=== PATIENT | male | born 1970 | race African-American/Black ===

== ENCOUNTER 2019-01-23 16:07 | Emergency (ER) | payer BC ==
[2019-01-23] MEDS ORDERED: Meclizine 25 MG Tab PO ONE (16:20)
[2019-01-23] MEDS ORDERED: Sodium Chloride 0.9% 1,000 ML IV ONE (16:21)
--- NOTE | 2019-01-23 16:25 | EDM.PDOC ---
ED HPI GENERAL MEDICAL PROBLEM - General Chief Complaint: Cardiovascular Problem Stated Complaint: NOT FEELING WELL Time Seen by Provider: 01/23/19 16:08 Source of Information: Reports: Patient History Limitations: Reports: No Limitations - History of Present Illness INITIAL COMMENTS - FREE TEXT/NARRATIVE: HISTORY AND PHYSICAL: History of present illness: Patient is a 48-year-old male presents to the ED today with concern of dizziness and lightheaded since he woke up at about 3 AM this morning. Patient states he does feel off balance. Patient states he's never had these symptoms before. Other than this, patient denies any other symptoms. Patient states he was able unable to work due to these. Patient has not taken anything for his symptoms. Patient has a history of hypertension but denies any other health history. Patient denies fever, chills, chest pain, shortness of breath, or cough. Denies headache, neck stiff ness, change in vision, syncope, or near syncope. Denies nausea, vomiting, abdominal pain, diarrhea, constipation, or dysuria. Has not noted any blood in urine or stool. Patient has been eating and drinking appropriately. Review of systems: As per history of present illness and below otherwise all systems reviewed and negative. Past medical history: As per history of present illness and as reviewed below otherwise noncontributory. Surgical history: As per history of present illness and as reviewed below otherwise noncontributory. Social history: See social history for further information Family history: As per history of present illness and as reviewed below otherwise noncontributory. Physical exam: General: Patient is alert, oriented, and in no acute distress. Patient laying comfortably on exam table. HEENT: Atraumatic, normocephalic, pupils equal and reactive bilaterally, negative for conjunctival pallor or scleral icterus, mucous membranes dry, TMs normal bilaterally, throat clear, neck supple, nontender, trachea midline. No drooling or trismus noted. No meningeal signs. No hot potato voice noted. Lungs: Clear to auscultation, breath sounds equal bilaterally, chest nontender. Heart: S1S2, regular rate and rhythm without overt murmur Abdomen: Soft, nondistended, nontender. Negative for masses or hepatosplenomegaly. Negative for costovertebral tenderness. Pelvis: Stable nontender. Genitourinary: Deferred. Rectal: Deferred. Skin: Intact, warm, dry. No lesions or rashes noted. Extremities: Atraumatic, negative for cords or calf pain. Neurovascular unremarkable. Neuro: Awake, alert, oriented. Cranial nerves II through XII unremarkable. Cerebellum unremarkable. Motor and sensory unremarkable throughout. Exam nonfocal. Notes: Patient states he does feel better with therapeutics given in the ED today. Voices understanding and is agreeable to plan of care. Denies any further questions or concerns at this time. Diagnostics: CBC, CMP, UA, EKG, troponin, head CT, orthostatic vitals, CXR, playground monitor, bedside glucose Therapeutics: Meclizine, NS Prescription: Meclizine, Amoxicillin Impression: Vertigo, unspecified Dehydration Paranasal sinus disease Plan: 1. Take medication as prescribed. You can alternate ibuprofen and Tylenol as directed for pain and discomfort. 2. Follow-up with a primary care provider as discussed. Return to the ED as needed and as discussed. Definitive disposition and diagnosis as appropriate pending reevaluation and review of above. - Related Data Allergies Allergy/AdvReac Type Severity Reaction Status Date / Time No Known Allergies Allergy Verified 01/23/19 16:08 Home Meds: Home Meds . [Unable to Verify Home Med List] 01/23/19 [History] Past Medical History Cardiovascular History: Reports: Hypertension - Infectious Disease History Infectious Disease History: Reports: None Social & Family History - Family History Family Medical History: Noncontributory - Tobacco Use Smoking Status *Q: Never Smoker - Caffeine Use Caffeine Use: Reports: Coffee - Recreational Drug Use Recreational Drug Use: No ED ROS GENERAL - Review of Systems Review Of Systems: ROS reveals no pertinent complaints other than HPI. ED EXAM, GENERAL - Physical Exam Exam: See Below (See dictation) Course - Vital Signs Last Recorded V/S: Last Vital Signs Temp 35.5 C 01/23/19 16:09 Pulse 79 01/23/19 16:09 Resp 15 01/23/19 16:09 BP 141/102 H 01/23/19 16:09 Pulse Ox 95 01/23/19 16:09 - Orders/Labs/Meds Orders: Active Orders 24 hr Category Date Time Status Blood Glucose Check, Bedside [RC] ONETIME Care 01/23/19 16:20 Active Cardiac Monitoring [RC] . DIRECTED Care 01/23/19 16:11 Active EKG Documentation Completion [RC] STAT Care 01/23/19 16:11 Active Orthostatic Vital Signs [RC] ASDIRECTED Care 01/23/19 16:12 Active UA RFX KAMILLA AND CULT IF INDIC [URIN] Stat Lab 01/23/19 16:11 Ordered Labs: Laboratory Tests 01/23/19 01/23/19 01/23/19 Range/Units 16:22 16:23 16:23 WBC 8.45 (4.0-11.0) K/uL RBC 5.05 (4.50-5.90) M/uL Hgb 14.8 (13.0-17.0) g/dL Hct 43.7 (38.0-50.0) % MCV 86.5 (80.0-98.0) fL MCH 29.3 (27.0-32.0) pg MCHC 33.9 (31.0-37.0) g/dL RDW Std Deviation 42.8 (28.0-62.0) fl RDW Coeff of Jorge 14 (11.0-15.0) % Plt Count 278 (150-400) K/uL MPV 10.90 (7.40-12.00) fL Neut % (Auto) 62.9 (48.0-80.0) % Lymph % (Auto) 23.4 (16.0-40.0) % Butts % (Auto) 9.7 (0.0-15.0) % Eos % (Auto) 3.6 (0.0-7.0) % Baso % (Auto) 0.4 (0.0-1.5) % Neut # (Auto) 5.3 (1.4-5.7) K/uL Lymph # (Auto) 2.0 (0.6-2.4) K/uL Butts # (Auto) 0.8 (0.0-0.8) K/uL Eos # (Auto) 0.3 (0.0-0.7) K/uL Baso # (Auto) 0.0 (0.0-0.1) K/uL Nucleated RBC % 0.0 /100WBC Nucleated RBCs # 0 K/uL Sodium 141 (136-148) mmol/L Potassium 3.7 (3.5-5.1) mmol/L Chloride 105 (98-107) mmol/L Carbon Dioxide 27.7 (21.0-32.0) mmol/L BUN 13 (7.0-18.0) mg/dL Creatinine 0.8 (0.8-1.3) mg/dL Est Cr Clr Drug Dosing 106.88 mL/min Estimated GFR (MDRD) > 60.0 ml/min Glucose 111 H (74-106) mg/dL POC Glucose 103 (60-110) mg/dL Calcium 8.8 (8.5-10.1) mg/dL Total Bilirubin 0.3 (0.2-1.0) mg/dL AST 20 (15-37) IU/L ALT 31 (14-63) IU/L Alkaline Phosphatase 63 (46-116) U/L Troponin I < 0.050 (0.000-0.056) ng/mL Total Protein 7.5 (6.4-8.2) g/dL Albumin 3.7 (3.4-5.0) g/dL Globulin 3.8 (2.6-4.0) g/dL Albumin/Globulin Ratio 1.0 (0.9-1.6) Meds: Medications Discontinued Medications Generic Name Dose Route Start Last Admin Trade Name Freq PRN Reason Stop Dose Admin Sodium Chloride 1,000 mls @ 999 mls/hr 01/23/19 16:21 01/23/19 16:32 Normal Saline IV 01/23/19 17:21 999 mls/hr STAT ONE Administration Meclizine HCl 25 mg 01/23/19 16:20 01/23/19 16:33 Antivert PO 01/23/19 16:21 25 mg ONETIME ONE Administration Departure - Departure Time of Disposition: 17:26 Disposition: Home, Self-Care 01 Clinical Impression: Vertigo, Paranasal sinus disease, Dehydration Forms: ED Department Discharge Additional Instructions: The following information is given to patients seen in the emergency department who are being discharged to home. This information is to outline your options for follow-up care. We provide all patients seen in our emergency department with a follow-up referral. The need for follow-up, as well as the timing and circumstances, are variable depending upon the specifics of your emergency department visit. If you don't have a primary care physician on staff, we will provide you with a referral. We always advise you to contact your personal physician following an emergency department visit to inform them of the circumstance of the visit and for follow-up with them and/or the need for any referrals to a consulting specialist. The emergency department will also refer you to a specialist when appropriate. This referral assures that you have the opportunity for follow-up care with a specialist. All of these measure are taken in an effort to provide you with optimal care, which includes your follow-up. Under all circumstances we always encourage you to contact your private physician who remains a resource for coordinating your care. When calling for follow-up care, please make the office aware that this follow-up is from your recent emergency room visit. If for any reason you are refused follow-up, please contact the [facility] Emergency Department at and asked to speak to the emergency department charge nurse. [facility] [address] [place], [place] [id number] [place] [address] 1. Take medication as prescribed. You can alternate ibuprofen and Tylenol as directed for pain and discomfort. 2. Follow-up with her primary care provider as discussed. Return to the ED as needed and as discussed. - My Orders Last 24 Hours: My Active Orders 01/23/19 16:11 Cardiac Monitoring [RC] . DIRECTED EKG Documentation Completion [RC] STAT UA RFX KAMILLA AND CULT IF INDIC [URIN] Stat 01/23/19 16:12 Orthostatic Vital Signs [RC] ASDIRECTED 01/23/19 16:20 Blood Glucose Check, Bedside [RC] ONETIME - Assessment/Plan Last 24 Hours: My Active Orders 01/23/19 16:11 Cardiac Monitoring [RC] . DIRECTED EKG Documentation Completion [RC] STAT UA RFX KAMILLA AND CULT IF INDIC [URIN] Stat 01/23/19 16:12 Orthostatic Vital Signs [RC] ASDIRECTED 01/23/19 16:20 Blood Glucose Check, Bedside [RC] ONETIME
[2019-01-23 16:55] LABS: CHLORIDE,CL 105 mmol/L (98-107); SODIUM,NA 141 mmol/L (136-148)
--- NOTE | 2019-01-23 17:09 | CR ---
Indication: Dizziness. Technique: AP views of the chest were obtained. Comparison: None Findings: The heart is normal in size. The lungs are clear. No infiltrate, pleural effusion, or pneumothorax is identified. Impression: No acute cardiopulmonary process. Dictated by Nina Springer MD @ Jan 23 2019 5:07PM Signed by Dr. Nina Springer @ Jan 23 2019 5:08PM
--- NOTE | 2019-01-23 17:20 | CT ---
INDICATION: dizzy, headache CT HEAD WITHOUT CONTRAST TECHNIQUE: Multiple axial CT images were performed through the head without intravenous contrast administration. COMPARISON: No previous studies are currently available for comparison. FINDINGS: No acute intracranial hemorrhage is identified. No extra-axial collections are evident and there is no mass effect or midline shift. Ventricles are normal in size and configuration. Brain parenchyma appears normal with unremarkable nick-white differentiation. Osseous structures are within normal limits and no fractures are seen. Included portions of the paranasal sinuses and mastoid air cells are normally aerated except for small bilateral maxillary sinus mucous retention cysts or polyps and trace mucosal thickening in the left maxillary sinus which could reflect mild sinusitis. IMPRESSION: 1. No intracranial abnormality identified. 2. Paranasal sinus disease as noted. CLARK GOODSON MD [employer] Dictated by Sergey Goodson MD @ 01/23/2019 5:15:05 PM Dictated by: Sergey Goodson MD @ 01/23/2019 17:18:02 (Electronically Signed)
== END 2019-01-23 17:51 | disposition home or self-care (01) ==
LOC: MW.ED 16:07
DX: E86.0 Dehydration (principal); J32.9 Chronic sinusitis, unspecified; I10 Essential (primary) hypertension
CPT/HCPCS: 36415; 70450; 71045; 80053; 82962; 84484; 85025; 93005; 96360; 99284; A9270; J7040

== ENCOUNTER 2019-03-25 18:03 | Emergency (ER) | payer OTHER, BC ==
--- NOTE | 2019-03-25 18:27 | EDM.PDOC ---
ED HPI GENERAL MEDICAL PROBLEM - General Chief Complaint: Lower Extremity Injury/Pain Stated Complaint: LEFT KNEE Time Seen by Provider: 03/25/19 18:18 - History of Present Illness INITIAL COMMENTS - FREE TEXT/NARRATIVE: HISTORY AND PHYSICAL: History of present illness: Patient 48-year-old male presents with concern of acute left knee injury informal blunt trauma in which he fell approximately 2 feet hitting his knee directly on a piece of pipe he sustained an abrasion tetanus status is to be determined he denies any other trauma or concern Review of systems: As per history of present illness and below otherwise all systems reviewed and negative. Past medical history: As per history of present illness and as reviewed below otherwise noncontributory. Surgical history: As per history of present illness and as reviewed below otherwise noncontributory. Social history: No reported history of drug or alcohol abuse. Family history: As per history of present illness and as reviewed below otherwise noncontributory. Physical exam: HEENT: Atraumatic, normocephalic, pupils reactive, negative for conjunctival pallor or scleral icterus, mucous membranes moist, throat clear, neck supple, nontender, trachea midline. Lungs: Clear to auscultation, breath sounds equal bilaterally, chest nontender. Heart: S1S2, regular, negative for clicks, rubs, or JVD. Abdomen: Soft, nondistended, nontender. Negative for masses or hepatosplenomegaly. Negative for costovertebral tenderness. Pelvis: Stable nontender. Genitourinary: Deferred. Rectal: Deferred. Extremities: Left knee has some mild tenderness over the patella with an abrasion noted this relatively superficial is no effusion joint is grossly stable CMS and neurovascular exam are unremarkable. Neuro: Awake, alert, oriented. Cranial nerves II through XII unremarkable. Cerebellum unremarkable. Motor and sensory unremarkable throughout. Exam nonfocal. Diagnostics: X-ray left knee Therapeutics: Be determined Impression: #1 acute left knee injury (blunt force trauma) #2 abrasion/contusion Definitive disposition and diagnosis as appropriate pending reevaluation and review of above. Left Knee Pain Score (Numeric/FACES): 10 - Related Data Allergies Allergy/AdvReac Type Severity Reaction Status Date / Time No Known Allergies Allergy Verified 03/25/19 18:22 Home Meds: Home Meds Lisinopril 10 mg PO DAILY 03/25/19 [History] Past Medical History Cardiovascular History: Reports: Hypertension - Infectious Disease History Infectious Disease History: Reports: None Social & Family History - Family History Family Medical History: Noncontributory - Caffeine Use Caffeine Use: Reports: Coffee Review of Systems - Review of Systems Review Of Systems: ROS reveals no pertinent complaints other than HPI. ED EXAM, GENERAL - Physical Exam Exam: See Below (The dictation) Course - Vital Signs Last Recorded V/S: Last Vital Signs Temp 36.2 C 03/25/19 18:23 Pulse 81 03/25/19 18:23 Resp 16 03/25/19 18:23 BP 135/92 H 03/25/19 18:23 Pulse Ox 96 03/25/19 18:23 - Orders/Labs/Meds Orders: Active Orders 24 hr Category Date Time Status Knee 3V Lt [CR] Stat Exams 03/25/19 18:20 Taken Departure - Departure Time of Disposition: 18:40 Disposition: Home, Self-Care 01 Condition: Good Clinical Impression: Knee injury - Discharge Information Referrals: PCP,None [Primary Care Provider] - Forms: ED Department Discharge Additional Instructions: The following information is given to patients seen in the emergency department who are being discharged to home. This information is to outline your options for follow-up care. We provide all patients seen in our emergency department with a follow-up referral. The need for follow-up, as well as the timing and circumstances, are variable depending upon the specifics of your emergency department visit. If you don't have a primary care physician on staff, we will provide you with a referral. We always advise you to contact your personal physician following an emergency department visit to inform them of the circumstance of the visit and for follow-up with them and/or the need for any referrals to a consulting specialist. The emergency department will also refer you to a specialist when appropriate. This referral assures that you have the opportunity for followup care with a specialist. All of these measure are taken in an effort to provide you with optimal care, which includes your followup. Under all circumstances we always encourage you to contact your private physician who remains a resource for coordinating your care. When calling for followup care, please make the office aware that this follow-up is from your recent emergency room visit. If for any reason you are refused follow-up, please contact the [facility] emergency department at and asked to speak to the emergency department charge nurse. JEAN[facility]PAUL [facility] - [facility] Professional Building [address] [place] [address], [address] [place] [address] The immobilizer crutches as directed Motrin/Tylenol as directed follow-up orthopedic surgery is needed as discussed return as needed as discussed - My Orders Last 24 Hours: My Active Orders 03/25/19 18:20 Knee 3V Lt [CR] Stat - Assessment/Plan Last 24 Hours: My Active Orders 03/25/19 18:20 Knee 3V Lt [CR] Stat
--- NOTE | 2019-03-25 19:05 | CR ---
INDICATION: Pain TECHNIQUE: Three views left knee COMPARISON: None FINDINGS: Bones: Alignment is normal. No fractures or bone lesions. Joint spaces: Small spur involving the lateral patella. Soft tissues: Unremarkable. IMPRESSION: Small lateral patellar spur. Dictated by Miguel Alvarez MD @ 03/25/2019 7:04:01 PM Dictated by: Miguel Alvarez MD @ 03/25/2019 19:04:10 (Electronically Signed)
== END 2019-03-25 19:01 | disposition home or self-care (01) ==
LOC: MW.ED 18:03
DX: S80.212A Abrasion, left knee, initial encounter (principal); I10 Essential (primary) hypertension; W17.89XA Other fall from one level to another, initial encounter
CPT/HCPCS: 73562-26-LT; 73562-LT; 99283-25